=== PATIENT | female | born 2000 | race Caucasian/White ===

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

== ENCOUNTER → 2020-01-26 | Outpatient (CLI) | payer BC | LOC: LABWHC1 07:29 | PROVIDERS: ATTEND Family Medicine | DX: Z03.818 Encounter for observation for suspected exposure to other biological agents ruled out (principal) | CPT/HCPCS: U0003; C9803 ==

== ENCOUNTER → 2020-10-31 | Outpatient (CLI) | payer BC | END | disposition home or self-care (01) | LOC: LABWHC1 16:18 | PROVIDERS: ATTEND Family Medicine | DX: Z20.822 Contact with and (suspected) exposure to COVID-19 (principal) | CPT/HCPCS: U0003; C9803; U0005 ==

== ENCOUNTER → 2021-03-31 | Outpatient (CLI) | payer BC | END | disposition home or self-care (01) | LOC: LABWHC1 14:00 | PROVIDERS: ATTEND Family Medicine | DX: Z20.822 Contact with and (suspected) exposure to COVID-19 (principal); R68.89 Other general symptoms and signs | CPT/HCPCS: 87502; U0003; U0005 ==

== ENCOUNTER 2022-04-18 08:04 | Emergency (ER) | payer BC ==
[2022-04-18 08:32] VITALS: BP 150/86; PULSE 92; RESP 16; TEMP 98.7
--- NOTE | 2022-04-18 09:49 | CT ---
EXAMINATION TYPE: CT brain lacie sue con DATE OF EXAM: 04/18/2022 COMPARISON: None HISTORY: fell hitting head CT DLP: 1597.8 mGycm, Automated exposure control for dose reduction was used. CONTRAST: Patient injected with 0 mL of Isovue 300. CT of the brain is performed utilizing 3 mm thick sections through the posterior fossa and 3 mm thick sections through the remaining calvarium. Study is performed within 24 hours of arrival to the hospital. No abnormal hyperdensity is present to suggest an acute intracranial hemorrhage. No mass lesion is evident. No acute infarcts are evident. Ventricles and sulci are appropriate for the patient age. Paranasal sinuses and mastoid air cells within the [id number] are clear. No acute fractures are id entified. IMPRESSIONS: 1. No acute intracranial process. Follow-up MRI can be performed as clinically indicated. CT cervical spine. COMPARISON: None CT of the cervical spine is performed in the axial plane at 2 mm thick sections. Reconstructed image s in the coronal, and sagittal plane are reviewed on the computer. No acute fractures are evident. Spina bifida occulta of C1 is evident, a normal variant. Vertebral body alignment is normal. Disc heights are preserved. Vertebral body heights are preserved. No spinal canal stenosis is evident. No neural foraminal stenosis is evident. IMPRESSIONS: 1. No acute osseous abnormality cervical spine.
--- NOTE | 2022-04-18 10:09 | ED ---
General Adult HPI - General Chief complaint: Head Injury Stated complaint: fall Time Seen by Provider: 04/18/22 08:04 Source: patient, RN notes reviewed Mode of arrival: ambulatory Limitations: no limitations - History of Present Illness Initial comments: 21-year-old female presents emergency department with chief complaint of head injury. Patient states that he called his ago she fell at work striking her head. Patient states that she's had a headache, positive since. Patient states she had complains of neck pain fell when trying to sit down onto some mild rates. Patient states she fell the ground she didn't initially hit her head on other objects prior. Denies any blood thinners no visual changes. Patient was sent here for further evaluation. - Related Data Home Medications Medication Instructions Recorded Confirmed No Known Home Medications 09/26/17 09/26/17 Allergies Allergy/AdvReac Type Severity Reaction Status Date / Time sulfamethoxazole Allergy Rash/Hives Verified 04/18/22 08:33 [From Bactrim] trimethoprim [From Bactrim] Allergy Rash/Hives Verified 04/18/22 08:33 Review of Systems ROS Statement: Those systems with pertinent positive or pertinent negative responses have been documented in the HPI. ROS Other: All systems not noted in ROS Statement are negative. Past Medical History Past Medical History: No Reported History History of Any Multi-Drug Resistant Organisms: None Reported Past Surgical History: Ear Surgery Additional Past Surgical History / Comment(s): tubes in ears and bone implants in ears Past Psychological History: Depression Smoking Status: Vaper Past Alcohol Use History: Occasional Past Drug Use History: None Reported General Exam Limitations: no limitations General appearance: alert, in no apparent distress Head exam: Present: atraumatic, normocephalic, normal inspection Eye exam: Present: normal appearance, PERRL, EOMI. Absent: scleral icterus, conjunctival injection, periorbital swelling ENT exam: Present: normal exam, normal oropharynx, mucous membranes moist Neck exam: Present: normal inspection, full ROM. Absent: tenderness, meningismus, lymphadenopathy Respiratory exam: Present: normal lung sounds bilaterally. Absent: respiratory distress, wheezes, rales, rhonchi, stridor Cardiovascular Exam: Present: regular rate, normal rhythm, normal heart sounds. Absent: systolic murmur, diastolic murmur, rubs, gallop, clicks Neurological exam: Present: alert, oriented X3, CN II-XII intact, reflexes normal. Absent: motor sensory deficit Skin exam: Present: warm, dry, intact, normal color. Absent: rash Course Vital Signs 04/18/22 08:30 Temperature 98.7 F Pulse Rate 92 Respiratory 16 Rate Blood Pressure 150/86 O2 Sat by Pulse 99 Oximetry Medical Decision Making - Medical Decision Making CT of her brain and C-spine unremarkable. Patient does have a noted head injury be discharged in stable condition with follow-up return parameters discussed. Disposition Clinical Impression: Head contusion, Neck pain Disposition: HOME SELF-CARE Condition: Stable Instructions (If sedation given, give patient instructions): Concussion (ED) Additional Instructions: Please return to the Emergency Department if symptoms worsen or any other concerns. Is patient prescribed a controlled substance at d/c from ED?: No Referrals: James Almanzar MD [Primary Care Provider] - 1-2 days Time of Disposition: 10:09
== END 2022-04-18 10:19 | disposition home or self-care (01) ==
LOC: EC 08:04
DX: S00.93XA Contusion of unspecified part of head, initial encounter (principal); M54.2 Cervicalgia; F17.290 Nicotine dependence, other tobacco product, uncomplicated; Z88.2 Allergy status to sulfonamides; W19.XXXA Unspecified fall, initial encounter; Y99.0 Civilian activity done for income or pay
CPT/HCPCS: 70450; 72125; 99283

== ENCOUNTER → 2022-07-12 | Outpatient (CLI) | payer BC ==
--- NOTE | 2022-07-12 15:38 | US ---
EXAMINATION TYPE: US pelvic complete DATE OF EXAM: 07/12/2022 COMPARISON: NONE CLINICAL HISTORY: R10.2 Pelvic and perineal pain. TECHNIQUE: . Transabdominal sonographic images of the pelvis were acquired. Transvaginal sonographi c images were medically necessary to better assess the following anatomy: Date of LMP: 07/06/2022 EXAM MEASUREMENTS: Uterus: 7.7 x 3.1 x 3.7 cm Endometrial Stripe: 0.14 cm Right Ovary: 2.2 x 2.1 x 1.4 cm. Follicles are identified. Left Ovary: 2.1 x 1.4 x 1.4 cm. Follicles are identified. 1. Uterus: Anteverted wnl 2. Endometrium: wnl 3. Right Ovary: wnl 4. Left Ovary: wnl 5. Bilateral Adnexa: wnl 6. Posterior cul-de-sac: wnl IMPRESSION: 1. Unremarkable pelvic ultrasound.
== END | disposition home or self-care (01) ==
LOC: RADUSWWP 14:23
PROVIDERS: ATTEND Family Medicine
DX: R10.2 Pelvic and perineal pain (principal)
CPT/HCPCS: 76830; 76856

== ENCOUNTER → 2022-07-17 | Outpatient (CLI) | payer BC ==
[2022-07-17 17:51] LABS: African American GFR (CKD) >90 (>60 ml/min/1.73 sqM); Anion Gap 9 mmol/L; Blood Urea Nitrogen 5 mg/dL (7-17); Carbon Dioxide 21 mmol/L (22-30); Chloride 108 mmol/L (98-107); Glucose 126 mg/dL (74-99); Non-African American GFR(CKD) >90 (>60 ml/min/1.73 sqM); Potassium 3.9 mmol/L (3.5-5.1); Sodium 138 mmol/L (137-145)
== END | disposition home or self-care (01) ==
LOC: LABWHC1 16:12
PROVIDERS: ATTEND Family Medicine
DX: Z11.3 Encounter for screening for infections with a predominantly sexual mode of transmission (principal); Z20.822 Contact with and (suspected) exposure to COVID-19; E87.6 Hypokalemia; R10.9 Unspecified abdominal pain
CPT/HCPCS: 36415; 80048

== ENCOUNTER → 2022-07-20 | Outpatient (CLI) | payer BC ==
--- NOTE | 2022-07-20 16:43 | US ---
EXAMINATION TYPE: US abdomen complete DATE OF EXAM: 07/20/2022 COMPARISON: NONE CLINICAL HISTORY: R10.9 ABDOMINAL PAIN. TECHNIQUE: Multiple sonographic images of the abdomen are obtained. FINDINGS: EXAM MEASUREMENTS: Liver Length: 16.0 cm Gallbladder Wall: 0.3 cm CBD: 0.4 cm Spleen: 11.3 cm Right Kidney: 11.2 x 3.5 x 5.4 cm Left Kidney: 11.3 x 5.2 x 5.0 cm [employer]INE [employer]ATOR NOTES: Morbidly obese patient with severe overlying bowel gas. Technically difficult, limited study. Pancreas: Obscured by bowel gas Liver: limited visualization, increased attenuation Gallbladder: limited visualization show no obvious abnormality Evidence for sonographic Monae's sign: No CBD: limited visualization show no obvious abnormality Spleen: wnl Right Kidney: limited visualization show no obvious abnormality Left Kidney: limited visualization show no obvious abnormality Upper IVC: limited visualization show no obvious abnormality Abd Aorta: limited visualization show no obvious abnormality IMPRESSION: 1. Exam is very limited due to patient body habitus. No suspicious abdomen ultrasound abnormality.
[2022-07-20 23:29] LABS: ALT 14 U/L (8-44); AST 14 U/L (13-35); African American GFR (CKD) 149.1 (60.0-200.0); Albumin 4.3 g/dL (3.8-4.9); Albumin/Globulin Ratio 1.59 (1.60-3.17); Alkaline Phosphatase 88 U/L (41-126); BUN/Creat Ratio 9.97 Ratio (12.00-20.00); Blood Urea Nitrogen 6.1 mg/dL (9.0-27.0); Calcium 9.5 mg/dL (8.7-10.3); Carbon Dioxide 20.3 mmol/L (20.0-27.5); Chloride 106 mmol/L (96-109); Globulin 2.7 g/dL (1.6-3.3); Glucose 104 mg/dL (70-110); Non-African American GFR(CKD) 128.7 (60.0-200.0); Potassium 4.3 mmol/L (3.5-5.5); Sodium 139 mmol/L (135-145); Total Bilirubin <0.15 mg/dL (0.30-1.20)
== END | disposition home or self-care (01) ==
LOC: RADUSWWP 15:32
PROVIDERS: ATTEND Family Medicine
DX: R10.9 Unspecified abdominal pain (principal)
CPT/HCPCS: 36415; 76700; 80053; 83036

== ENCOUNTER → 2022-08-09 | Outpatient (CLI) | payer BC ==
--- NOTE | 2022-08-09 15:18 | NM ---
EXAMINATION TYPE: NM hepatobiliary w EF DATE OF EXAM: 08/09/2022 COMPARISON: NONE HISTORY: R10.9 UNSPECIFIED ABDOMINAL PAIN TECHNIQUE: After the intravenous administration of 4.2 mCi Tc 99m Mebrofenin hepatobiliary scintigrap hy is performed. Immediate images post injection. FINDINGS: There is satisfactory initial accumulation of tracer by the liver. The gallbladder is visualized wit hin 6 minutes. The small bowel activity is noted within 14 minutes. At one hour 8 ounces of oral en sure plus is given to mimic CCK and gallbladder ejection fraction is calculated at 96%. IMPRESSION: Correlate for hypertrapping state.
== END | disposition home or self-care (01) ==
LOC: RADNMMAIN 12:53
PROVIDERS: ATTEND Family Medicine
DX: R10.9 Unspecified abdominal pain (principal)
CPT/HCPCS: 78226; A9537